=== PATIENT | male | born 1955 | race Caucasian/White ===

== ENCOUNTER 2016-10-29 22:52 | Emergency (ER) | payer MEDICARE, MEDICAID ==
[~2016-10-29] VITALS: Ht 172.7 cm; Wt 72.6 kg
[~2016-10-29 22:52] MED LIST: ASPI-605 PO; DASA50TA PO; FINA5TAB11 PO; METO25TA6 PO
--- NOTE | 2016-10-29 23:05 | NUR ---
TO BED 9 A 61 YO MALE PATIENT BIBSON AND PT STATES HE HAD 2 BOWEL MOVMENTS TONGIHT AND BOTH OF THEM HAD BRIGHT RED BLOOD IN STOOLS. VSS. NONDIAPHORETIC. DENIES BLEEDING AT THIS TIME. GOWNED. TELE MONITORING ON. AWAITING FOR ER MD EDWARDS.
[2016-10-29] MEDS ORDERED: IV NS 0.9% 500 ML IV ONE (23:07)
[2016-10-29] MEDS ORDERED: IV SET PRIMARY 1 EA INFUS.SET MC ONE (23:07)
--- NOTE | 2016-10-29 23:20 | NUR ---
STARTED A SALINE LOCK ON THE LAC G18, BLOOD DRAWN AND SENT TO LAB.
[2016-10-29 23:26] LABS: EOSINOPHILS # (AUTO) 0.1 /CMM (0.0-0.7); EOSINOPHILS % (AUTO) 1.5 % (0.0-6.0); HEMATOCRIT 34 % (39-51); HEMOGLOBIN 11.1 g/dL (13.5-17.5); LYMPHOCYTES # (AUTO) 2.8 /CMM (0.8-4.8); LYMPHOCYTES % (AUTO) 34.8 % (20.0-44.0); MEAN CORPUSCULAR HEMOGLOBIN 27 PG (26.0-33.0); MEAN CORPUSCULAR HGB CONC 33 g/dl (31.0-36.0); MEAN CORPUSCULAR VOLUME 84 fL (80-96); MONOCYTES # (AUTO) 0.8 /CMM (0.1-1.30); MONOCYTES % (AUTO) 9.7 % (2.0-12.0); NEUTROPHILS # (AUTO) 4.3 /CMM (1.8-8.9); PLATELET COUNT (AUTO) 222 /CMM (150-450); RED BLOOD CELL COUNT(AUTO) 4.03 MIL/uL (4.5-6.0)
[2016-10-29] MEDS ORDERED: IV NS 0.9% 500 ML BAG IV ONE (23:30)
[2016-10-29 23:38] LABS: CALCIUM, SERUM 8.9 mg/dL (8.5-10.1); CARBON DIOXIDE 29 mmol/L (21-32); CHLORIDE 102 mmol/L (98-107); GLUCOSE 131 mg/dL (74-106); POTASSIUM 3.9 mmol/L (3.5-5.1); SODIUM SERUM 137 mmol/L (136-145); UREA NITROGEN, BLOOD 24 mg/dL (7-18)
[2016-10-29 23:41] LABS: INR 0.96 (0.87-1.13); PROTHROMBIN TIME 10.3 SECS (9.5-12.7)
[2016-10-29 23:43] LABS: ALANINE AMINOTRANSFERASE 18 U/L (12-78); ALBUMIN 3.2 g/dL (3.4-5.0); ALKALINE PHOSPHATASE 70 U/L (46-116); ASPARTATE AMINOTRANSFERASE 10 U/L (15-37); BILIRUBIN,DIRECT 0.1 mg/dL (0.0-0.2); BILIRUBIN,TOTAL 0.2 mg/dL (0.2-1.0); LIPASE 108 U/L (73-393); TOTAL PROTEIN, SERUM 8.9 g/dL (6.4-8.2)
[2016-10-29 23:46] LABS: TROPONIN I < 0.017 ng/mL (0.00-0.056)
--- NOTE | 2016-10-30 01:20 | NUR ---
IV removed. Catheter intact and site benign. Pressure and 4x4 applied to site. No bleeding noted. Patient discharged to home in stable condition. Written and verbal after care instructions given. Patient verbalizes understanding of instruction. Patient is ambulatory with steady gait, no further complaints.
[2016-10-30 01:25] VITALS: BP 120/69
== END 2016-10-30 01:25 | disposition home or self-care (01) ==
LOC: ER 22:54
DX: K92.2 Gastrointestinal hemorrhage, unspecified (principal); I10 Essential (primary) hypertension; J90 Pleural effusion, not elsewhere classified; N28.1 Cyst of kidney, acquired; Z85.6 Personal history of leukemia; Z79.82 Long term (current) use of aspirin
CPT/HCPCS: 36415; 71010; 74176; 80048; 80076; 83690; 84484; 85025; 85730; 86850; 93005; 99285; A4606; J7040; Z7610

== ENCOUNTER 2017-09-20 15:07 | Emergency (ER) | payer MEDICARE, MEDICAID ==
[~2017-09-20] VITALS: Ht 162.6 cm; Wt 72.6 kg
[2017-09-20 15:18] VITALS: BP 152/72
[2017-09-20] MEDS ORDERED: AMOX/CLAVULANATE 875 MG TABLET PO ONE (15:30)
[2017-09-20] MEDS ORDERED: TDAP [DIPH/PERTUSSIS/TET] 0.5 ML VIAL IM ONE ×2 (15:30→15:34)
[2017-09-20] MEDS ORDERED: AMOX/CLAVULANATE 875 MG TABLET ONE (15:34)
== END 2017-09-20 16:00 | disposition home or self-care (01) ==
LOC: ER 15:09
DX: S51.012A Laceration without foreign body of left elbow, initial encounter (principal); S41.152A Open bite of left upper arm, initial encounter; I10 Essential (primary) hypertension; Z85.6 Personal history of leukemia; Z79.82 Long term (current) use of aspirin; W54.0XXA Bitten by dog, initial encounter; Y93.89 Activity, other specified; Y92.89 Other specified places as the place of occurrence of the external cause; Y99.8 Other external cause status
CPT/HCPCS: 90715; A4606; Z7610